=== PATIENT | male | born 1985 | race Caucasian/White ===

== ENCOUNTER 2019-04-09 | Emergency (ER) | payer SELFPAY ==
[~2019-04-09] MED LIST: BACTRIM DS1 TAB PO; NO; ULTRAM50 MG OR
[2019-04-09 17:08] LABS: HEMATOCRIT 37.7 % (39.0-50.0); IMMATURE GRANULOCYTES 0.5 % (0.0-5.0); MEAN CELL VOLUME 84.9 fL CALC (80.0-100.0); MEAN CORPUSCULAR HGB 29.3 pG CALC (26.0-32.0); MEAN CORPUSCULAR HGB CONC 34.5 g/L CALC (32.0-36.0); NEUT# 13.35 thou/uL (1.82-7.42); RED BLOOD COUNT 4.44 mill/uL (4.70-6.10); RED CELL DISTRI WIDTH 12.3 % (11.5-15.5)
[2019-04-09 17:22] LABS: ALBUMIN 3.8 g/dL (3.2-5.0); ALKALINE PHOSPHATASE 77 u/l (38-126); ANION GAP 12 (6-22 (CALC)); BILIRUBIN, TOTAL 1.1 mg/dL (0.0-1.4); BUN 14 mg/dL (9-20); BUN/CREATININE RATIO 15 (12-20 (CALC)); CARBON DIOXIDE 30 mmol/l (22-30); CHLORIDE 95 mmol/l (95-108); CREATININE 0.9 mg/dL (0.7-1.3); GFR > 60 ML/MIN (>=60 (CALC)); GFR FOR AFR.AMER. > 60 ML/MIN (>=60 (CALC)); POTASSIUM 3.1 mmol/l (3.5-5.1); SGOT/AST 27 u/l (17-59); SODIUM 134 mmol/l (137-146); TOTAL PROTEIN 6.9 g/dL (6.3-8.2)
[2019-04-09] MEDS ORDERED: CLEOCIN300 MG PO (18:12)
[2019-04-09] MEDS ORDERED: BACTRIM DS1 TAB PO (18:12)
[2019-04-09] MEDS ORDERED: TRAMADOL HYDROC50 MG PO (18:12)
[2019-04-10] MEDS ORDERED: BACTRIM DS1 TAB PO (09:17)
[2019-04-10] MEDS ORDERED: CLEOCIN300 MG PO (09:17)
== END 2019-04-09 19:41 | disposition home or self-care (01) | DRG 603 ==
DX: L03.115 Cellulitis of right lower limb (principal); F17.210 Nicotine dependence, cigarettes, uncomplicated